=== PATIENT | male | born 1980 | race Caucasian/White ===

== ENCOUNTER → 2016-06-11 | Outpatient (CLI) | payer OTHER ==
--- NOTE | 2016-06-11 12:44 | DX ---
3 views left third finger Reason for examination: Injury. Findings: A fracture or other acute osseous abnormality is not identified. The bone alignment is norm al. No radiopaque foreign body is seen. Impression: Left third finger negative for fracture.
== END ==
LOC: BMCIMAGING 12:19
PROVIDERS: ATTEND Family Medicine
DX: S69.92XA Unspecified injury of left wrist, hand and finger(s), initial encounter (principal); Y93.89 Activity, other specified